=== PATIENT | male | born 1935 | race Caucasian/White ===

== ENCOUNTER → 2016-10-19 | Outpatient (CLI) | payer MEDICARE, OTHER ==
[~2016-10-19] MED LIST: ALEN1TAB48 PO; APIX5TAB PO; ASCO500T PO; DIGO0.12 PO; LANTINJ SQ; METF1000 PO; METF500T PO; MULT-65 PO; NORC5TAB PO; NOVOINJ3 SQ; OMEG1CAP53 PO; POTA540T PO; PROT40TA PO; TAZT180C PO; TRIL135C PO; VITA100021 SL; ZOCO5TAB PO
== END ==
LOC: PLAB 12:18
PROVIDERS: ATTEND Urology
DX: N40.0 Benign prostatic hyperplasia without lower urinary tract symptoms (principal)
CPT/HCPCS: 36415; 84153

== ENCOUNTER → 2016-11-13 | Outpatient (CLI) | payer MEDICARE, OTHER ==
[2016-11-13 10:08] LABS: ALKALINE PHOSPHATASE 30 U/L (45-117); ALT (GPT) 64 U/L (12-78); ANION GAP 8 MEQ/L (5-15); AST (GOT) 44 U/L (15-37); BICARBONATE 26.7 MEQ/L (21.0-32.0); BLOOD UREA NITROGEN 18 MG/DL (7-18); CHLORIDE 106 MEQ/L (98-107); GLOMERULAR FILTRATION RATE 55 ML/MIN (>89); GLUCOSE,FASTING 144 MG/DL (74-99); HDL CHOLESTEROL 34.1 MG/DL (40.0-60.0); LDL CHOLESTEROL 6 MG/DL (0-99); POTASSIUM 4.1 MEQ/L (3.5-5.1); SODIUM (NA) 141 MEQ/L (136-145); TOTAL BILIRUBIN ADULT 0.6 MG/DL (0.2-1.0)
[2016-11-13 11:22] LABS: HEMOGLOBIN A1a 1.2 %; HEMOGLOBIN A1b 1.3 %; HEMOGLOBIN Ao 83.1 %; HEMOGLOBIN F 1.1 %; HEMOGLOBIN LA1C 2.2 %; HEMOGLOBIN P3 3.9 %
== END ==
LOC: PLAB 06:39
PROVIDERS: ATTEND Family Medicine
DX: I10 Essential (primary) hypertension (principal); E78.5 Hyperlipidemia, unspecified; E11.21 Type 2 diabetes mellitus with diabetic nephropathy
CPT/HCPCS: 36415; 80053; 80061; 83036

== ENCOUNTER → 2017-08-02 | Outpatient (CLI) | payer MEDICARE, OTHER ==
[2017-08-02 10:10] LABS: ALBUMIN 3.6 GM/DL (3.4-5.0); AST (GOT) 34 U/L (15-37); BICARBONATE 25.2 MEQ/L (21.0-32.0); BLOOD UREA NITROGEN 16 MG/DL (7-18); CALCIUM 9.3 MG/DL (8.5-10.1); CHLORIDE 109 MEQ/L (98-107); CREATININE 1.15 MG/DL (0.60-1.30); GLOMERULAR FILTRATION RATE 61 ML/MIN (>89); GLUCOSE,FASTING 140 MG/DL (74-99); SODIUM (NA) 142 MEQ/L (136-145)
[2017-08-02 10:11] LABS: ALT (GPT) 55 U/L (12-78); CHOLESTEROL 91 MG/DL (120-200)
[2017-08-02 10:25] LABS: ALKALINE PHOSPHATASE 32 U/L (45-117); CHOLESTEROL/ HDL RATIO 2.45 RATIO; DIGOXIN 0.7 NG/ML (0.8-2.0); HDL CHOLESTEROL 37.1 MG/DL (40.0-60.0); LDL CHOLESTEROL DIRECT 35 MG/DL (0-99); TOTAL BILIRUBIN ADULT 0.6 MG/DL (0.2-1.0); TOTAL PROTEIN 6.8 GM/DL (6.4-8.2); TRIGLYCERIDES 269 MG/DL (42-150)
[2017-08-02 10:27] LABS: LDL CHOLESTEROL ND MG/DL (0-99)
[2017-08-02 16:58] LABS: HEMOGLOBIN A1C 6.7 % (4.3-6.0)
== END ==
LOC: PLAB 07:15
PROVIDERS: ATTEND Family Medicine
DX: E78.5 Hyperlipidemia, unspecified (principal); I10 Essential (primary) hypertension; E11.21 Type 2 diabetes mellitus with diabetic nephropathy; E34.9 Endocrine disorder, unspecified; Z51.81 Encounter for therapeutic drug level monitoring
CPT/HCPCS: 36415; 80053; 80061; 80162; 82043; 83036; 83721; 84443